=== PATIENT | female | born 1990 | race Caucasian/White ===

== ENCOUNTER 2017-08-23 12:05 | Emergency (ER) | payer OTHER ==
[2017-08-23 12:15] VITALS: BP 121/86; TEMP 99.8; BMI 28.8
--- NOTE | 2017-08-23 12:33 | PDOC ---
History of Present Illness - General Chief Complaint: Respiratory Stated Complaint: COUGH, SORE THROAT, NASAL CONGESTION, DIARRHEA Time Seen by Provider: 08/23/17 12:16 History Source: Patient Exam Limitations: No Limitations - History of Present Illness Initial Comments: 08/23/17 12:30 The patient is a 26F with a PMH of asthma and tachycardia (followed up by a step finisher) who presents to the ER with 12 hours of flu-like symptoms. The patient works at [employer] in the [place] and is concerned about having the flu and spreading it to patients. She admits to cough, sore throat, headache, diarrhea, and congestion. She denies other symptoms. Past History - Past Medical History Allergies/Adverse Reactions: Allergies Allergy/AdvReac Type Severity Reaction Status Date / Time Penicillins Allergy Verified 08/23/17 12:10 Home Medications: Ambulatory Orders Albuterol Sulfate Inhaler - [Ventolin HFA Inhaler -] 1 - 2 inh PO QID 10/18/14 Cetirizine HCl [Zyrtec -] 10 mg PO DAILY 10/18/14 Norgestimate-Ethinyl Estradiol [Ortho Tri-Cyclen] 1 each PO DAILY 10/18/14 Ipratropium [place] [Atrovent Hfa] 2 sprays IH DAILY 08/23/17 Ondansetron [Zofran *Odt*] 8 mg SL BID #8 od.tablet 08/23/17 Oseltamivir Phosphate [Tamiflu -] 75 mg PO BID #10 capsule 08/23/17 Asthma: Yes Cardiac Disorders: Yes (TACHYCARDIA) COPD: No - Immunization History Immunization Up to Date: Yes - Suicide/Smoking/Psychosocial Hx Smoking History: Never smoked Have you smoked in the past 12 months: No Hx Alcohol Use: No Drug/Substance Use Hx: No Review of Systems - Review of Systems Able to Perform ROS?: Yes Comments:: 08/23/17 13:09 GENERAL/CONSTITUTIONAL: Positive for fever or chills. No weakness. HEAD, EYES, EARS, NOSE AND THROAT: Positive for sore throat. No change in vision. No ear pain or discharge. CARDIOVASCULAR: No chest pain, palpitations, or lightheadedness. RESPIRATORY: Positive for cough. No cough, shortness of breath, or hemoptysis. GASTROINTESTINAL: Positive for diarrhea. No nausea, vomiting, constipation, or abdominal pain. GENITOURINARY: No dysuria, frequency, hematuria, or change in urination. MUSCULOSKELETAL: Positive for myalgias. No neck or back pain. SKIN: No rash or lesions. NEUROLOGIC: No headache, numbness, tingling, weakness, loss of consciousness, or change in strength/sensation. ENDOCRINE: No increased thirst. No abnormal weight change. HEMATOLOGIC/LYMPHATIC: No anemia, easy bleeding, or history of blood clots. ALLERGIC/IMMUNOLOGIC: No hives or skin allergy. Is the patient limited Azeri proficient: No *Physical Exam - Vital Signs Last Vital Signs Temp Pulse Resp BP Pulse Ox 99.8 F H 125 H 20 121/86 98 08/23/17 12:05 08/23/17 12:05 08/23/17 12:05 08/23/17 12:05 08/23/17 12:05 - Physical Exam Comments: 08/23/17 13:11 GENERAL: Well developed, well nourished. Awake and alert. No acute distress. HEENT: Normocephalic, atraumatic. Tonsills are swollen, no erythema or exudates on posterior oropharynx. Hearing grossly normal. Moist mucous membranes. PERRLA , EOMI. No conjunctival pallor. Sclera are non-icteric. NECK: Supple. Full ROM. No JVD. No lymphadenopathy. CARDIOVASCULAR: Regular rate and rhythm. No murmurs, rubs, or gallops. Distal pulses are 2+ and symmetric. PULMONARY: No evidence of respiratory distress. Lungs clear to auscultation bilaterally. No wheezing, rales or rhonchi. ABDOMINAL: Soft. Non-tender. Non-distended. No rebound or guarding. GENITOURINARY: No CVA tenderness bilaterally. MUSCULOSKELETAL: Normal range of motion at all joints. No bony deformities or tenderness. EXTREMITIES: No cyanosis. No clubbing. No edema. No calf tenderness. SKIN: Warm and dry. Normal capillary refill. No rashes. No jaundice. NEUROLOGICAL: Alert, awake, appropriate. Cranial nerves 2-12 intact. Normal speech. Gait is normal without ataxia. PSYCHIATRIC: Cooperative. Good eye contact. Appropriate mood and affect. Heart Score/ECG Review #1 ECG reviewed & interpreted by me at: 13:25 General ECG Interpretation: Sinus Rhythm, Normal Rate, Normal Intervals, No acute ischemic changes Compared to previous ECG there are: Previous ECG unavail (Sinus tach to 120) Medical Decision Making - Medical Decision Making 08/23/17 13:23 The patient is a 26F with a PMH of asthma and tachycardia who presents with flu- like symptoms. I will do an EKG and treat her fever to see if her tachycardia comes down to baseline (110's). Will d/c with tamiflu and zofran. *DC/Admit/Observation/Transfer Diagnosis at time of Disposition: Influenza A - Discharge Dispostion Disposition: HOME Condition at time of disposition: Stable Admit: No - Prescriptions Prescriptions: Ondansetron [Zofran *Odt*] 8 mg SL BID #8 od.tablet Oseltamivir Phosphate [Tamiflu -] 75 mg PO BID #10 capsule - Referrals Referrals: Francie Castellanos MD [Primary Care Provider] - - Patient Instructions Printed Discharge Instructions: Influenza Additional Instructions: Please return to the ER if symptoms persist, worsen, or new symptoms arise. Please follow up with your primary care physician in 2-3 days. Please return to the ER if you have any signs or symptoms of chest pain, shortness of breath, uncontrollable fever, chills, nausea, vomiting, numbness, tingling, or weakness in any part of your body, changes in vision, or slurred speech. Please take your medications as prescribed. - Post Discharge Activity Forms/Work/School Notes: Back to Work
[2017-08-23] MEDS ORDERED: ACETAMINOPHEN 325 MG TABLET (FP) PO ONE (13:00)
[2017-08-23] MEDS ORDERED: ACETAMINOPHEN 325 MG TABLET (FP) ONE (13:02)
--- NOTE | 2017-08-23 13:18 | PDOC ---
Attending Attestation - Resident Resident Name: MicahrosalbaFlorin - ED Attending Attestation I have performed the following: I have examined & evaluated the patient, The case was reviewed & discussed with the resident, I agree w/resident's findings & plan, Exceptions are as noted - HPI HPI: 08/23/17 13:16 Healthy 26-year-old female with history of resting tachycardia presents with URI symptoms for about 3 days, worsened over the last 24 hours with fevers and chills and myalgias. Rhinorrhea but minimal cough, no shortness of breath or chest pain. 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 - Physicial Exam PE: 08/23/17 13:16 Low-grade fever, tachycardia, O2 sat normal Well-appearing, ambulating currently, speaking full sentences Oropharynx is clear, neck is supple Lungs are clear, heart is tachycardiac Abdomen benign, no edema - Medical Decision Making 08/23/17 13:17 Patient seen and evaluated with the resident. I agree with the overall evaluation, assessment, and management with the following summary of visit: 26-year-old female with no significant past medical history presents with URI symptoms and fever/chills, consistent with viral illness, likely influenza. No evidence for pneumonia, no respiratory distress. Influenza swab sent We'll treat empirically with Tamiflu EKG for the tachycardia, antipyretics for the fever Reassess and dispo accordingly Heart Score/ECG Review #1 ECG reviewed & interpreted by me at: 13:09 General ECG Interpretation: Sinus Rhythm (tachy at 120), Normal Intervals (qtc 432), No acute ischemic changes
[2017-08-23 13:46] VITALS: PULSE 114
--- NOTE | 2017-08-24 14:26 | EKG ---
Test Reason : Blood Pressure : / mmHG Vent. Rate : 120 BPM Atrial Rate : 120 BPM P-R Int : 140 ms QRS Dur : 074 ms QT Int : 306 ms P-R-T Axes : 040 053 031 degrees QTc Int : 432 ms SINUS TACHYCARDIA OTHERWISE NORMAL ECG NO PREVIOUS ECGS AVAILABLE Confirmed by BIB FINK MD ([id number] on 08/24/2017 2:26:35 PM Referred By: BJ NI Confirmed By:BIB FINK MD
== END 2017-08-23 13:50 | disposition home or self-care (01) ==
LOC: FER 12:05
DX: J09.X2 Influenza due to identified novel influenza A virus with other respiratory manifestations (principal); J45.909 Unspecified asthma, uncomplicated
CPT/HCPCS: 84703; 87804; 93005; 99285-25